=== PATIENT | female | born 1985 | race Two or more races ===

== ENCOUNTER 2025-09-16 18:09 | Inpatient (IN) | payer MEDICAID, OTHER ==
[~2025-09-16] VITALS: Ht 170.2 cm; Wt 94.2 kg
[2025-09-16 20:05] LABS: Hematocrit 44.9 % (36.0-46.0); Hemoglobin 15.4 g/dL (12.2-16.2); Mean Corpuscular Hemoglobin 30.2 pg (28.0-32.0); Mean Corpuscular Volume 88.5 fL (80.0-100.0); Nucleated Red Blood Cells % 0.3 %
[2025-09-16 20:08] LABS: Chloride 102 mmol/L (98-107); Sodium 141 mmol/L (136-145)
[2025-09-16 20:09] LABS: Anion Gap 11 (5-15); Carbon Dioxide 28 mmol/L (20-31)
[2025-09-16 20:10] LABS: Calcium 9.6 mg/dL (8.7-10.4)
[2025-09-16 20:14] LABS: Glucose 84 mg/dL (74-106)
[2025-09-16 20:15] LABS: BUN/Creatinine Ratio 15.1 (10.0-20.0); Blood Urea Nitrogen 14 mg/dL (9-23)
[2025-09-16 20:17] LABS: Potassium 3.4 mmol/L (3.5-5.1)
--- NOTE | 2025-09-16 20:38 | DVH ---
EXAM: CT HEAD WITHOUT CONTRAST INDICATION: right sided leg weakness x 4 hours TECHNIQUE: CT of the head without intravenous contrast. Radiation Dose : 1. Head: CT Dose: CTDI volume is for 59.39 mGy. Dose-length product is 1070.70 mGy*cm The dose indicators for CT are the volume Computed Tomography (CT) Dose Index (CTDIvol) and the Dose Length Product (DLP), and are measured in units of mGy and mGy-cm, respectively. These indicators are not patient dose, but values generated from the CT scanner acquisition factors. The report includes radiation exposure data for exposures received during this examination. COMPARISON: None FINDINGS: Motion artifact degrades fine detail. The cerebral parenchyma appears to be normal configuration and attenuation. The ventricles, cisterns , and sulci appear age-appropriate. There is no evidence for acute territorial infarct, hemorrhage, or mass effect. The orbits are normal. The visualized paranasal sinuses and mastoid air cells are clear. The soft t issues and osseous structures appear within normal limits. IMPRESSION: 1. No acute territorial infarct, intracranial hemorrhage, or mass effect. 2. If clinical symptoms persist, MRI is suggested in further evaluation. Radiation optimization: All CT scans at this facility use at least one of these dose optimization liliane hniques: automated exposure control mA and/or kV adjustment per patient size (includes targeted exam s where dose is matched to clinical indication) or iterative reconstruction.
--- NOTE | 2025-09-16 21:55 | ED.PDOC ---
History of Present Illness HPI Comments 40-year-old female with past medical history of hypertension presenting for evaluation of sudden onset of right lower extremity numbness, weakness which occurred at around 3:00 p.m. today. Patient states that she works overnight and was sleeping, when she woke up and she went to stand up she felt as if her right leg was completely weak. She reports that she almost fell due to the weakness. She did not initially seek any medical attention when it first occurred. She states that the function started to come back, however, now feels as if it is numb, tingling along the right lower extremity from the knee down to the lateral toes. Reporting some difficulty walking due to this. Patient denies any associated slurred speech, facial weakness, numbness. Reporting some paresthesias along the right hand as well, however, not having any weakness of the arm. This has never occurred to her before. No prior strokes. No prior back injuries. Denies any back pain at this time. Denies significant pain with this. No bowel or bladder incontinence. 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 Hx Social History Smoker: Non-Smoker Alcohol: Denies ETOH Use Drugs: Denies Drug Use Lives In: Home Constitutional: denies: chills, diaphoresis, fatigue, fever, malaise, sweats, weakness, others EENTM: denies: blurred vision, double vision, ear bleeding, ear discharge, ear drainage, ear pain, ear ringing, eye pain, eye redness, hearing loss, mouth pain, mouth swelling, nasal discharge, nose bleeding, nose congestion, nose pain, photophobia, tearing, throat pain, throat swelling, voice changes, others Respiratory: denies: cough, hemoptysis, orthopnea, SOB at rest, shortness of breath, SOB with excertion, stridor, wheezing, others Cardiovascular: denies: chest pain, dizzy spells, diaphoresis, Dyspnea on exertion, edema, irregular heart beat, left arm pain, lightheadedness, palpitations, PND, syncope, others Gastrointestinal: denies: abdomen distended, abdominal pain, blood streaked bowels, constipated, diarrhea, dysphagia, difficulty swallowing, hematemesis, melena, nausea, poor appetite, poor fluid intake, rectal bleeding, rectal pain, vomiting, others Genitourinary: denies: abnormal vagina bleeding, burning, dyspareunia, dysuria, flank pain, frequency, hematuria, incontinence, pain, , vagina discharge, urgency, others Neurological: reports: right sided weakness, tingling Musculoskeletal: denies: back pain, gout, joint pain, joint swelling, muscle pain, muscle stiffness, neck pain, others Integumetry: denies: bruises, change in color, change in hair/nails, dryness, laceration, lesions, lumps, rash, wounds, others Allergic/Immunocompromised: denies: Difficulty Healing, Frequent Infections, Hives, Itching, others Hematologic/Lymphatic: denies: anemia, blood clots, easy bleeding, easy bruising, swollen glands, others Endocrine: denies: excessive hunger, excessive sweating, excessive thirst, excessive urination, flushing, intolerance to cold, intolerance to heat, unexplained weight gain, unexplained weight loss, others Psychiatric: denies: anxiety, bipolar disorder, depression, hopeless, panic disorder, schizophrenia, sleepless, suicidal, others All Other Systems: Reviewed and Negative Physical Exam General Appearance: Normal HEENT: Normal ENT Inspection Neck: Non-Tender, Normal Inspection Respiratory: No Accessory Muscle Use, No Respiratory Distress, Normal Breath So unds Cardiovascular: No Edema, No JVD Breast Exam: Deferred Gastrointestinal: Non Tender, Soft Genitalia: Deferred Pelvic: Deferred Rectal: Deferred Extremities: Other (RUE: 5/5 strength t/o shoulder, elbow, wrist, 5/5 finger tree thinner; subjective diminished sensation along right hand; RLE: 4+/5 Hip and knee F/E, 4/5 great toe dorsiflexion; ambulates with slight limp/dragging foot) Neurologic: Alert, county demonstrator II-XII nml as Tested, Sensory Deficit Cerebellar Function: Normal Reflexes: Normal Skin: Normal Color Lymphatic: No Adenopathy Was a procedure done? Was a procedure done?: No Differential Dx Considerations may include: CVA versus lumbar spinal stenosis versus lumbosacral radiculopathy versus lumbar spinal cord compression X-Ray, Labs, Meds, VS Vital Signs Date Time Temp Pulse Resp B/P (MAP) Pulse Ox O2 Delivery O2 Flow Rate FiO2 10/20/25 18:11 98.2 67 16 154/110 99 98.2 Lab Test 09/16/25 19:49 Range/Units White Blood Count 10.5 4.4-10.8 10^3/uL Red Blood Count 5.08 4.0-5.20 10^6/uL Hemoglobin 15.4 12.2-16.2 g/dL Hematocrit 44.9 36.0-46.0 % Mean Corpuscular Volume 88.5 80.0-100.0 fL Mean Corpuscular Hemoglobin 30.2 28.0-32.0 pg Mean Corpuscular Hemoglobin Concent 34.2 32.0-36.0 g/dL Red Cell Distribution Width 13.6 11.8-14.3 % Platelet Count 304 140-450 10^3/uL Mean Platelet Volume 7.3 6.9-10.8 fL Neutrophils (%) (Auto) 59.6 37.0-80.0 % Lymphocytes (%) (Auto) 28.9 10.0-50.0 % Monocytes (%) (Auto) 8.6 0.0-12.0 % Eosinophils (%) (Auto) 2.2 0.0-7.0 % Basophils (%) (Auto) 0.7 0.0-2.0 % Neutrophils # (Auto) 6.3 1.6-8.6 10 ^3/uL Lymphocytes # (Auto) 3.0 0.4-5.4 10 ^3/uL Monocytes # (Auto) 0.9 0-1.3 10 ^3/uL Eosinophils # (Auto) 0.2 0-0.8 10 ^3/uL Basophils # (Auto) 0.1 0-0.2 10 ^3/uL Nucleated Red Blood Cells 0.3 % Erythrocyte Sedimentation Rate Pending Sodium Level 141 136-145 mmol/L Potassium Level 3.4 L 3.5-5.1 mmol/L Chloride Level 102 98-107 mmol/L Carbon Dioxide Level 28 20-31 mmol/L Anion Gap 11 5-15 Blood Urea Nitrogen 14 9-23 mg/dL Creatinine 0.93 0.550-1.02 mg/dL Glomerular Filtration Rate Calc 79 >90 mL/min BUN/Creatinine Ratio 15.1 10.0-20.0 Serum Glucose 84 74-106 mg/dL Calcium Level 9.6 8.7-10.4 mg/dL Magnesium Level Pending Total Bilirubin Pending Direct Bilirubin Pending Aspartate Amino Transferase (AST) Pending Alanine Aminotransferase (ALT) Pending Alkaline Phosphatase Pending C-Reactive Protein High Sensitivity Pending Total Protein Pending Albumin Pending Anti-Nuclear Antibody Screen Pending Time of 1ST Reevaluation: 21:50 (Patient remains pain-free, however, still reporting subjective numbness, weakness of the leg.) Reevaluation 1ST: Unchanged Patient Education/Counseling: Diagnosis, Treatment Family Education/Counseling: No Family Present SEPSIS Sepsis Screen Date sepsis recognized/suspect: Sep 16, 2025 Time Sepsis recognized/suspect: 1810 Recent Procedure: No On Antibiotic Therapy: No Respiratory Rate >20: No Heart Rate >90: No Temp<36 C (96.8 F) or >38.3 C: No SBP <90 or MAP <65 mmHG: No New Acute Mental Status Change: No Is the patient on CPAP, BIPAP,: No Physician Orders Test, Urine (09/16/25 19:37) Head Without Contrast (09/16/25 19:37) Vital Signs Date Time Temp Pulse Resp B/P (MAP) Pulse Ox O2 Delivery O2 Flow Rate FiO2 09/16/25 18:11 98.2 67 16 154/110 99 98.2 Laboratory Tests Test 09/16/25 19:49 White Blood Count 10.5 10^3/uL (4.4-10.8) Departure 1 Departure Time of Disposition: 21:53 (40-year-old female with past medical history of hypertension who is today presenting for right lower extremity weakness, numbness that started a few hours ago. Patient also reporting right-sided hand paresthesias. Denies any facial involvement, slurred speech, consider possible CVA. CT of the head was performed which shows no evidence of any acute intracranial pathology. Patient is walking somewhat with a limp and does have limited dorsiflexion of the great toe and knee and hip flexion and extension. Has some subjective decreased sensation along the right leg. Given these findings could be concerning for possible lumbar spinal cord compression, radiculopathy. Given that patient is normally ambulatory and is here ambulating with a limp patient would benefit from MRI to further evaluate the cause of her symptoms.) Impression: Primary Impression: Right leg weakness Additional Impressions: Numbness of right lower extremity Right hand paresthesia Disposition: ADMITTED INPATIENT Admit to: Med Surg Condition: Stable Critical Care Note Critical Care Time?: No Stability Stability form required: YRN Moncada MD Sep 16, 2025 21:55
[2025-09-16] MEDS ORDERED: ACETAMINOPHEN 325 MG TAB PO PRN (22:45)
[2025-09-16] MEDS ORDERED: ONDANSETRON HCL 4 MG/2 ML VIAL IV PRN (22:45)
--- NOTE | 2025-09-16 23:19 | DVH ---
Right lower extremity venous duplex Clinical History: right leg sensory loss, rule out mass, cyst Comparison: None Technique: Duplex Doppler evaluation of the deep venous system of the right lower extremity from the common femo ral vein to the popliteal vein including color Doppler and spectral/pulsed waveform analysis was perf ormed. Findings: The common femoral vein demonstrates appropriate compressibility and waveform variability. There is compressibility/patency of the great saphenous vein at the proximal thigh. The femoral vein demonstrates appropriate compressibility and waveform variability. The deep femoral vein demonstrates appropriate compressibility and waveform variability. The popliteal vein demonstrates appropriate compressibility and waveform variability. There is normal compressibility at the tibioperoneal trunk. Impression: 1. No right femoropopliteal venous thrombosis. 2. Contralateral common femoral vein is patent.
[2025-09-16 23:38] LABS: Alanine Aminotransferase 23.0 U/L (7-40); Alkaline Phosphatase 89.0 U/L (46-116); Bilirubin, Direct 0.2 mg/dL (<0.3); Magnesium 2.1 mg/dL (1.6-2.6)
[2025-09-16 23:39] LABS: Bilirubin, Total 0.6 mg/dL (0.2-1.0)
[2025-09-16 23:45] LABS: Albumin 4.8 g/dL (3.2-4.8); Total Protein 8.2 g/dL (5.7-8.2)
--- NOTE | 2025-09-16 23:48 | DVH ---
EXAM: CT LS SPINE WO CONTRAST INDICATION: rule out lumbar radiculopathy TECHNIQUE: Axial images of the lumbar spine have been obtained along with coronal and sagittal reform atted images. CT scans at this facility use dose modulation, iterative reconstruction, and/or weight based dosing when appropriate to reduce radiation dose to as low as reasonably achievable. COMPARISON: None Dose: CTDIvol: 35.75 mGy, DLP: 1187.45 mGy.cm FINDINGS: There is no acute displaced fracture. There is grade 1 anterolisthesis of L5 on S1 on the basis of b ilateral pars defects. There is loss of intervertebral disc height most pronounced at L5-S1. The soft tissues are unremarkable. LEVEL BY LEVEL DISCUSSION BELOW: T12-L1: Unremarkable. L1-L2: Unremarkable. L2-L3: A disc protrusion effaces the thecal sac. There is facet arthropathy. L3-L4: A disc protrusion effaces the thecal sac. There is facet arthropathy. L4-L5: There is facet arthropathy contributing to mild left neural foraminal stenosis. L5-S1: There is grade 1 anterolisthesis of L5 on S1 associated with unroofing of the disc. There is f acet arthropathy. There is severe bilateral neural foraminal stenosis. IMPRESSION: 1. No acute displaced fracture. 2. Degenerative changes of the lumbar spine as detailed with bilateral neural foraminal stenosis at L 5-S1. This may be further evaluated with MRI as clinically indicated.
[2025-09-17] MEDS: POTASSIUM CHL 20 Meq TABLET PO ONE (00:21)
[2025-09-17] MEDS: ENOXAPARIN SOD 40 MG/0.4 ML SYRINGE SC SCH (00:22)
--- NOTE | 2025-09-17 00:53 | DVHHPRES ---
History of Present Illness Resident Creating Document: SY KAPLAN RESIDENT History of Present Illness This is a 40-year-old female with a past medical history of hypertension and anxiety disorder, who came to the emergency room today because of numbness and tingling sensation in her right leg. Patient reports that she was feeling alright in the morning but after a nap in the afternoon, she woke up felt that her right leg from the calf below was numb and felt heavy and "". Patient reports that she called out to her daughter when she was unable to move her leg and denies any slurring of speech or weakness in any part of the body besides the leg. She reports that in another 2 hours time she felt tingling sensation in her feet and she tried to walk but her leg felt heavy and has since felt the same sensation of heaviness and numbness. She reports that she has been limping because of this. She denies any injury to the back, injury to her legs, any other neurological symptoms similar to this in the past, Nausea, vomiting, stroke or TIA symptoms in the past. On inquiry patient reports that she had a bariatric surgery on Apr 04 2025 and has lost 50lb since then. Patient reports that she still has the tingling sensation in the calf and toe and numbness in the lateral 3 toes. On admission her blood pressure was 154/110 mmHg. Rest of the vitals are normal. Potassium was 3.4. Head CT showed no acute territorial infarct, intracranial hemorrhage, or mass effect. We are admitting her for further evaluation and workup. Past medical history: Hypertension, anxiety Past surgical history: cholecystectomy, bariatric surgery on April 04, 2025 lost 50 lb since then Family history: Reviewed and noncontributory to the management of this case Social history: Patient denies ever smoking, taking any illicit drugs but admits to drinking once a month (Tequila) Home medication: Lisinopril 20, Lexapro since last week Allergies: None PCP: Patient does not remember her PCP because she just switched to a new one Code status: Full code Review of Systems Eyes: No: Pain, Vision change, Conjunctivae inflammation, Eyelid inflammation, Other, Redness ENT: No: Ear pain, Ear discharge, Nose pain, Nose discharge, Nose congestion, Mouth pain, Mouth swelling, Throat pain, Throat swelling, Other Respiratory: No: Cough, Dry, Shortness of breath, SOB with excertion, Wheezing, Hemoptysis, Pleuritic Pain, Sputum, Wheezing, Other Cardiovascular: No: Chest Pain, Palpitations, Orthopnea, Paroxysmal Noc. Dyspnea, Edema, Lt Headedness, Other Gastrointestinal: No: Nausea, Vomiting, Abdominal Pain, Diarrhea, Constipation, Melena, Hematochezia, Other Genitourinary: No Dysuria, No Frequency, No Incontinence, No Hematuria, No Retention, No Other Musculoskeletal: leg pain; No: other, neck pain, shoulder pain, arm pain, back pain, hand pain, foot pain Skin: No: Rash, Lesions, Jaundice, Bruising, Other Neurological: Numbness; No: Weakness, Incoordination, Change in speech, Confusion, Seizures, Other Allergies: Coded Allergies: NO KNOWN ALLERGIES (Unverified , 09/16/25) Medications Current Medications Medications Dose Ordered Sig/Romero Route Start Time Stop Time Status Last Admin Dose Admin Ondansetron HCl 4 mg Q4HP PRN IV 09/16/25 22:45 Acetaminophen 650 mg Q6HP PRN PO 09/16/25 22:45 Enoxaparin Sodium 40 mg Q24H SC 09/16/25 23:30 09/17/25 00:22 40 MG Lisinopril 20 mg DAILY PO 09/17/25 10:00 Citalopram Hydrobromide 10 mg DAILY PO 09/17/25 10:00 Exam Vital Signs Vital Signs Date Time Temp Pulse Resp B/P (MAP) Pulse Ox O2 Delivery O2 Flow Rate FiO2 09/17/25 00:06 74 20 100 Room Air 09/17/25 00:06 98.1 149/100 (116) 98.1 Exam General Appearance: Alert, Oriented X3, Cooperative, Not in acute distress HEENT: Atraumatic, Mucous membranes moist/pink Respiratory: Clear to auscultation, Normal air movement, No added sounds Cardiovascular: Regular rate, Normal S1, Normal S2, No murmurs Abdominal: Active bowel sounds, Soft, no distention, no tenderness Extremities: No edema, Normal pulses, No tenderness/swelling, strength in right leg 2/5, left leg 5/5, tactile sensation on right leg is less compared to right leg Skin: No Significant rash, except past surgical scars, vitiligo seen in face and feet Neuro: Normal speech, sensorimotor deficits none Psych/Mental Status: Mental status NL, Mood NL Labs/Xrays Labs Test 09/16/25 19:49 Range/Units White Blood Count 10.5 4.4-10.8 10^3/uL Red Blood Count 5.08 4.0-5.20 10^6/uL Hemoglobin 15.4 12.2-16.2 g/dL Hematocrit 44.9 36.0-46.0 % Mean Corpuscular Volume 88.5 80.0-100.0 fL Mean Corpuscular Hemoglobin 30.2 28.0-32.0 pg Mean Corpuscular Hemoglobin Concent 34.2 32.0-36.0 g/dL Red Cell Distribution Width 13.6 11.8-14.3 % Platelet Count 304 140-450 10^3/uL Mean Platelet Volume 7.3 6.9-10.8 fL Neutrophils (%) (Auto) 59.6 37.0-80.0 % Lymphocytes (%) (Auto) 28.9 10.0-50.0 % Monocytes (%) (Auto) 8.6 0.0-12.0 % Eosinophils (%) (Auto) 2.2 0.0-7.0 % Basophils (%) (Auto) 0.7 0.0-2.0 % Neutrophils # (Auto) 6.3 1.6-8.6 10 ^3/uL Lymphocytes # (Auto) 3.0 0.4-5.4 10 ^3/uL Monocytes # (Auto) 0.9 0-1.3 10 ^3/uL Eosinophils # (Auto) 0.2 0-0.8 10 ^3/uL Basophils # (Auto) 0.1 0-0.2 10 ^3/uL Nucleated Red Blood Cells 0.3 % Erythrocyte Sedimentation Rate 20 0-20 mm/hr Sodium Level 141 136-145 mmol/L Potassium Level 3.4 L 3.5-5.1 mmol/L Chloride Level 102 98-107 mmol/L Carbon Dioxide Level 28 20-31 mmol/L Anion Gap 11 5-15 Blood Urea Nitrogen 14 9-23 mg/dL Creatinine 0.93 0.550-1.02 mg/dL Glomerular Filtration Rate Calc 79 >90 mL/min BUN/Creatinine Ratio 15.1 10.0-20.0 Serum Glucose 84 74-106 mg/dL Calcium Level 9.6 8.7-10.4 mg/dL Magnesium Level 2.1 1.6-2.6 mg/dL Total Bilirubin 0.6 0.2-1.0 mg/dL Direct Bilirubin 0.2 <0.3 mg/dL Aspartate Amino Transferase (AST) 22 13-40 U/L Alanine Aminotransferase (ALT) 23 7-40 U/L Alkaline Phosphatase 89 46-116 U/L C-Reactive Protein High Sensitivity 0.16 <1.0 mg/dL Total Protein 8.2 5.7-8.2 g/dL Albumin 4.8 3.2-4.8 g/dL SEPSIS Sepsis Screen Date sepsis recognized/suspect: Sep 17, 2025 Time Sepsis recognized/suspect: 000 Recent Procedure: No On Antibiotic Therapy: No Respiratory Rate >20: No Heart Rate >90: No Temp<36 C (96.8 F) or >38.3 C: No SBP <90 or MAP <65 mmHG: No New Acute Mental Status Change: No Is the patient on CPAP, BIPAP,: No Physician Orders Test, Urine (09/16/25 19:37) Head Without Contrast (09/16/25 19:37) Admit (09/16/25 22:38) Code Status (09/16/25 22:38) Ondansetron Hcl (Zofran) (09/16/25 22:45) Complete Blood Count (09/17/25 04:00) Comprehensive Metabolic Panel (09/17/25 04:00) Cardiac Diet-2gna,Lofat,Lochol (09/17/25 Breakfast) Condition: Fair (09/16/25 22:38) Acetaminophen Tablet (Tylenol Tablet) (09/16/25 22:45) Enoxaparin Sodium (Lovenox) (09/16/25 23:30) Stat Ekg For Chest Pain (09/16/25 22:38) Lisinopril Tablet (Zestril Tablet) (09/17/25 10:00) Ls Spine Wo Contrast (09/16/25 22:38) [place] Direct W/Reflex To Comp. (09/16/25 22:38) Rt Lower Dvt (09/16/25 22:38) Hemoglobin A1c (09/17/25 00:07) Vitamin B12 (09/17/25 00:07) Folate (Folic Acid) (09/17/25 00:07) Citalopram Tablet (Celexa Tablet) (09/17/25 10:00) Drug Screen (09/17/25 00:50) Vital Signs Date Time Temp Pulse Resp B/P (MAP) Pulse Ox O2 Delivery O2 Flow Rate FiO2 09/17/25 00:06 74 20 100 Room Air 09/17/25 00:06 98.1 74 12 149/100 (116) 100 98.1 09/16/25 18:11 98.2 67 16 154/110 99 98.2 Laboratory Tests Test 09/16/25 19:49 White Blood Count 10.5 10^3/uL (4.4-10.8) Medications Medications Dose Ordered Sig/Romero Route Start Time Stop Time Status Last Admin Dose Admin Enoxaparin Sodium 40 mg Q24H SC 09/16/25 23:30 09/17/25 00:22 40 MG Potassium Chloride 20 meq ONCE ONCE PO 09/16/25 22:45 09/16/25 23:14 DC 09/17/25 00:21 20 MEQ Assessment/Plan Assessment/Plan #lumbar radiculopathy #mononeuropathy of right lower leg #rule out compressive mass/cyst #rule out autoimmune conditions #rule out dvt -rt lower leg doppler shows No right femoropopliteal venous thrombosis. -LS spine CT without contrast shows: No acute displaced fracture; Degenerative changes of the lumbar spine as detailed with bilateral neural foraminal stenosis at L5-S1. This may be further evaluated with MRI as clinically indicated. -folate/b12 -[place] -ESR 20,CRP 0.16 -Zofran 4mg iv q4 prn -acetaminophen 650mg p.o q6 prn -UDS #hypertension -continue home med lisinopril 20mg #anxiety disorder -continue home medication citalopram 10mg po #vitiligo -outpatient follow-up with dermatology #hypokalemia -replenished DVT prophylaxis: Lovenox 40 mg subcutaneous daily Diet: cardiac diet Goals of care discussed with the patient for more than 27 minutes: Full code status Case discussed with Dr. Barajas, patient Plan discussed with: Patient My Orders Orders - SY KAPLAN RESIDENT Procedure Category Date Status Time Admit ADMIT 09/16/25 Transmitted 22:38 Code Status CODE 09/16/25 Transmitted 22:38 Ondansetron Hcl PHA 09/16/25 In Process (Zofran) 22:45 Complete Blood Count LAB 09/17/25 Logged 04:00 Comprehensive LAB 09/17/25 Logged Metabolic Panel 04:00 Cardiac DIET 09/17/25 Transmitted Diet-2gna,Lofat,Lochol Breakfast Condition: Fair PAULO 09/16/25 In Process 22:38 Acetaminophen Tablet PHA 09/16/25 In Process (Tylenol Tablet) 22:45 Enoxaparin Sodium PHA 09/16/25 In Process (Lovenox) 23:30 Stat Ekg For Chest PAULO 09/16/25 In Process Pain 22:38 Lisinopril Tablet PHA 09/17/25 In Process (Zestril Tablet) 10:00 Ls Spine Wo Contrast CT 09/16/25 Resulted 22:38 [place] Direct W/Reflex LAB 09/16/25 In Process To Comp. 22:38 Rt Lower Dvt US 09/16/25 Resulted 22:38 Hemoglobin A1c LAB 09/17/25 Logged 00:07 Vitamin B12 LAB 09/17/25 Logged 00:07 Folate (Folic Acid) LAB 09/17/25 Logged 00:07 Citalopram Tablet PHA 09/17/25 In Process (Celexa Tablet) 10:00 Drug Screen LAB 09/17/25 Transmitted 00:50 Date of Service: Sep 16, 2025 Billing Provider: KENDALL BARAJAS MD Common Visit Codes: [id number] INP/OBS CARE (HIGH) SY KAPLAN RESIDENT Sep 17, 2025 00:53 KENDALL BARAJAS MD Sep 17, 2025 11:52
[2025-09-17 04:29] LABS: Hematocrit 42.1 % (36.0-46.0); Hemoglobin 14.5 g/dL (12.2-16.2); Mean Corpuscular Hemoglobin 30.2 pg (28.0-32.0); Mean Corpuscular Volume 87.9 fL (80.0-100.0); Nucleated Red Blood Cells % 0.1 %
[2025-09-17 04:41] VITALS: BP 126/81; PULSE 60; RESP 16; TEMP 97.7; O2SAT 98
[2025-09-17 04:53] LABS: Alanine Aminotransferase 19 U/L (7-40); Albumin 4.4 g/dL (3.2-4.8); Alkaline Phosphatase 78 U/L (46-116); Anion Gap 11 (5-15); BUN/Creatinine Ratio 15.6 (10.0-20.0); Bilirubin, Total 0.8 mg/dL (0.2-1.0); Blood Urea Nitrogen 14 mg/dL (9-23); Calcium 9.7 mg/dL (8.7-10.4); Carbon Dioxide 28 mmol/L (20-31); Chloride 102 mmol/L (98-107); Glucose 89 mg/dL (74-106); Potassium 3.7 mmol/L (3.5-5.1); Sodium 141 mmol/L (136-145); Total Protein 7.6 g/dL (5.7-8.2)
[2025-09-17] MEDS ORDERED: LISI-285 PO (06:20)
[2025-09-17] MEDS ORDERED: ESCI5TAB PO (06:20)
[2025-09-17 08:09] VITALS: BP 122/81; PULSE 71; RESP 16; TEMP 97.8; O2SAT 98
[2025-09-17] MEDS: CITALOPRAM HYDROBR 20 MG TAB PO SCH (08:54)
[2025-09-17] MEDS: LISINOPRIL 20 MG TAB PO SCH (08:54)
--- NOTE | 2025-09-17 10:15 | DVHPNRES ---
Progress Note Date Seen: Sep 17, 2025 Resident Creating Document: TASHIA CLARK RESIDENT Medical Necessity Reason Pt with a Central, PICC or Fol: No Subjective Review of Systems Brief history on admission: This is a 40-year-old female with a past medical history of vitiligo, hypertension and anxiety disorder, presented to the ER for chief complain of numbness and tingling sensation in her right leg. Patient started complaining of right leg weakness, numbness, tingling since yesterday. Patient reports that she called out to her daughter when she was unable to move her leg and denies any slurring of speech or weakness in any part of the body besides the leg. She reports that in another 2 hours time she felt tingling sensation in her feet and she tried to walk but her leg felt heavy and has since felt the same sensation of heaviness and numbness. She reports that she has been limping because of this. She denies any injury to the back, injury to her legs, any other neurological symptoms similar to this in the past, Nausea, vomiting, stroke or TIA symptoms in the past. On inquiry patient reports that she had a bariatric surgery on Apr 04 2025 and has lost 50lb since then. Patient reports that she still has the tingling sensation in the calf and toe and numbness in the lateral 3 toes. On admission her blood pressure was 154/110 mmHg. Rest of the vitals are normal. Potassium was 3.4. Head CT showed no acute territorial infarct, intracranial hemorrhage, or mass effect. We are admitting her for further evaluation and workup. Past medical history: Hypertension, anxiety, vitiligo Past surgical history: cholecystectomy, bariatric surgery on April 04, 2025 lost 50 lb since then Family history: Reviewed and noncontributory to the management of this case Social history: Patient denies ever smoking, taking any illicit drugs but admits to drinking once a month (Tequila) Home medication: Lisinopril 20, Lexapro since last week Allergies: None PCP: Patient does not remember her PCP because she just switched to a new one Code status: Full code ROS: Constitutional: Denies weight loss, fever and chills. HEENT: Denies changes in vision and hearing. Respiratory: Denies shortness of breath and cough Cardiovascular: Denies chest discomfort or palpitations GI: Denies abdominal pain, nausea, vomiting and diarrhea. : Denies dysuria and urinary frequency. Musculoskeletal: Denies myalgias and joint pain Skin: Denies rash and pruritus. Neurological: Right leg weakness, numbness, tingling 09/17/2025: Patient was seen at bedside today. Patient continues to complain of right leg weakness [id number]. Objective vital signs Vital Sign Date Time Temp Pulse Resp B/P (MAP) Pulse Ox O2 Delivery O2 Flow Rate FiO2 09/17/25 08:54 131/74 09/17/25 08:09 97.8 71 16 98 97.8 09/17/25 00:06 Room Air medications Current Medications Medications Dose Ordered Sig/Romero Route Start Time Stop Time Status Last Admin Dose Admin Ondansetron HCl 4 mg Q4HP PRN IV 09/16/25 22:45 Acetaminophen 650 mg Q6HP PRN PO 09/16/25 22:45 Enoxaparin Sodium 40 mg Q24H SC 09/16/25 23:30 09/17/25 00:22 40 MG Lisinopril 20 mg DAILY PO 09/17/25 10:00 09/17/25 08:54 20 MG Citalopram Hydrobromide 10 mg DAILY PO 09/17/25 10:00 Examination General: Diffuse hyperpigmentation seen in hands, legs, face. Patient alert and oriented in person, place and time. Patient following commands. HEENT: Normocephalic, atraumatic, moist mucous membranes Respiratory/pulmonary: Clear lungs bilaterally, vesicular murmurs present in almost all lung rainey, no associated crackles or wheezes. Cardiovascular: Normal heart sounds S1 and S2 with no associated murmurs Abdomen: Abdomen nondistended, there is no pain to palpation in any of the abdominal quadrants, no palpable masses. Extremities: There is no peripheral edema present at the lower extremities. Peripheral Pulses: 3+ Radial (R). 3+ Radial (L). 3+ Dorsalis pedis (R). 3+ Dorsalis pedis(L) Skin: No rashes or pruritus, there is no sacral edema present at this time. Neurological: Reduced motor strength 2/5 in right lower extremity, 2/5 sensory strength in right lower extremity. Normal motor and sensory strength in left lower extremity. No meningeal signs. Intact cranial nerves. laboratory and microbiology Laboratory Tests 09/17/25 03:43 Test 10/21/25 03:43 Range/Units Serum Glucose 89 74-106 mg/dL Problem List/Assessment/Plan Problem List/Assessment/Plan Lumbar radiculopathy Mononeuropathy of right lower leg Rule out compressive mass/cyst Rule out autoimmune conditions Severe Lumbar spinal stenosis Perineural sleeve cyst Degenerative disc disease Zofran 4mg iv q4 prn Acetaminophen 650mg p.o q6 prn MAC ordered MRI spine shows moderate lumbar degenerative disc, severe bilateral neural foraminal stenosis at L5-S1, 7 mm perineural sleeve cyst at S2 Spinal surgery consulted TIA, ruled out Stroke, ruled out Echocardiogram ordered Head CT, MRI shows no hemorrhagic or ischemic infarct Hypertension Continue home med lisinopril 20mg Anxiety disorder Continue home medication citalopram 10mg po Vitiligo Outpatient follow-up with dermatology Hypokalemia Replenished DVT ruled out Lower extremity Doppler negative for DVT DIET: Cardiac DVT PROPHYLAXIS: Lovenox GI PROPHYLAXIS: Protonix CODE STATUS: Goals of care discussed with patient at bedside for more than 17 minutes. Full code DISPOSITION: Med/surge This medical document was created using an electronic medical record system with [employer] direct computerized dictation system. Although this document has been carefully reviewed, there may still be some phonetic and typographical errors. These areas are purely typographical due to imperfections of the software programs, and do not reflect any compromise in the patient's medical care. Patient's status and plan discussed with the patient. Case discussed with Dr. Sheth Plan discussed with: Patient, Other (Nurses) My Orders My Orders Orders - TASHIA CLARK Procedure Category Date Status Time Echo 2d Mode Cardiac US 09/17/25 Logged DOP 10:05 Brain Head Wo Contrast MRI 09/17/25 Logged 10:05 * Neurology Consult CONS 09/17/25 Transmitted 10:05 Basic Metabolic Panel LAB 09/18/25 Verified 04:00 Complete Blood Count LAB 09/18/25 Verified 04:00 Aspirin Tablet PHA 09/17/25 Transmitted 10:15 Aspirin Tablet PHA 09/18/25 Transmitted 10:00 Atorvastatin (Lipitor) PHA 09/17/25 Transmitted 22:00 Date of Service: Sep 17, 2025 Billing Provider: ROGER SHETH MD Common Visit Codes: [id number] INP/OBS CARE(HIGH) TASHIA CLARK RESIDENT Sep 17, 2025 10:15
--- NOTE | 2025-09-17 11:40 | DVH ---
MRI BRAIN HEAD WO CONTRAST INDICATION: TIA EXAM DATE: 09/17/2025 10:48 AM COMPARISON: CT HEAD WITHOUT CONTRAST on DOS: 09/16/25 PROCEDURE: Using a 1.5 Jessica scanner, multisequence multiplanar imaging of the brain was obtained. FINDINGS: The brainshows normal morphology and signal characteristics. No abnormal T2 hyperintensity, diffusion restriction, or susceptibility hypointensity is present. The ventricles are normal in size . The midline structures are intact. The major intracranial flow voids are present. The aerated space s are normal. The orbital contents and extracranial soft tissues appear normal. IMPRESSION: Unremarkable MRI findings of the brain.
[2025-09-17 12:31] VITALS: BP 127/88; PULSE 59; RESP 16; TEMP 98.4; O2SAT 98
--- NOTE | 2025-09-17 14:01 | DVH ---
PROCEDURE: MRI LUMBAR SPINE WO CONTRAST Indication: radiculopathy COMPARISON: None TECHNIQUE: Multiplanar multisequence images of the the lumbar spine are obtained. FINDINGS: For the purpose of this examination, there are 5 lumbar vertebral body types counting from the lumbos acral junction. The lumbar vertebral body heights are maintained. Moderate multilevel disc space narrowing and desicc ation. 3 mm anterolisthesis L5 on S1. Probable L5 pars defects. Conus terminates at the level of the T12 vertebral body level. T12-L1: No spinal canal, neural foraminal stenosis. L1-2: No spinal canal, neural foraminal stenosis. Mild facet and flavum hypertrophy. L2-3: 3 mm disc protrusion. [id number] facet and flavum hypertrophy. No spinal canal stenosis. Mild left neural foraminal stenosis. L3-4: 3 mm disc protrusion. [id number]-[id number] facet and flavum hypertrophy. No spinal canal stenosis. Mild bilateral neural foraminal stenosis. L4-5: 3 mm disc protrusion. Moderate facet and flavum hypertrophy . No spinal canal stenosis. Mild b ilateral neural foraminal stenosis. L5-S1: 3 mm anterolisthesis L5 on S1. No spinal canal stenosis. Severe bilateral neural foraminal st enosis. 7 mm perineural sleeve cysts at S2, incompletely characterized. IMPRESSION: Moderate lumbar degenerative disc disease. L5 pars defects resulting in 3 mm anterolisthesis L5 on S1. Severe bilateral neural foraminal stenos is L5-S1. Mild neural foraminal stenosis at the remaining levels as described. No high-grade spinal canal stenosis. 7 mm perineural sleeve cysts at S2
[2025-09-17] MEDS: PANTOPRAZOLE 40 MG TAB PO ONE (15:15)
[2025-09-17 17:00] VITALS: BP 120/77; PULSE 62; RESP 16; TEMP 98.6; O2SAT 98
--- NOTE | 2025-09-17 17:49 | DVHSR ---
APPROVED REPORT EXAM: Two-dimensional and M-mode echocardiogram with Doppler and color Doppler. Blood Pressure: 131/74 mmHg INDICATION TIA RISK FACTORS Obesity: Height: 5'7", Weight: 207 DIMENSIONS LVDd4.5 (3.8-5.7cm)LA (2D)4.2 (1.9-4.0cm)Aortic Root3.2 (2.0-3.7cm) LVDs3.0 (2.5-4.0cm)LA (MM) (1.9-4.0cm)Aortic Cusp Exc1.8 (1.5-2.0cm) EF (%) 60.0 (55-70%)Rt. Atrium4.1 (1.9-4.0cm)Asc. Aorta cm IVSd1.2 (0.7-1.1cm)RV (D) (1.8-2.4cm) PWd1.0 (0.7-1.1cm) Mitral Valve MitralMitral Stenosis E wave0.69m/sMV Mean GR.mmHg A wave0.71m/sMV Peak GR.mmHg E/A ratio1.02D MVAcm2 DECEL [id number] 1/2 Timems Aortic Valve Aortic ValveAortic Stenosis V11.03m/Yana Mean GR.5mmHg V21.53m/Yana Peak GR.9mmHg LVOT Diameter2.0 (1.8-2.4cm)Doppler AVA2.11cm2 Pulmonic Valve V21.19m/s Tricuspid Valve TR Velocity2.20m/s [id number] Conclusion lvef 65% normal rv function no severe valve abnormalities noted atrial septal aneurysm noted
[2025-09-17] MEDS ORDERED: ATORVASTATIN 20 MG TAB PO SCH (22:00)
[2025-09-18] MEDS ORDERED: PANTOPRAZOLE 40 MG TAB PO SCH (06:00)
--- NOTE | 2025-09-18 07:58 | DVHINCON2 ---
Consultation - Surgical Date Seen: Sep 18, 2025 Referring Physician Referring Physician Attending Doctor: Tashia Muñoz Resident Resident Creating Document: SY KAPLAN RESIDENT Reason for Consultation numbness and tingling sensation in her right leg History of Present Illness History of Present Illness History of Present Illness This is a 40-year-old female with a past medical history of hypertension and anxiety disorder, who came to the emergency room today because of numbness and tingling sensation in her right leg. Patient reports that she was feeling a lright in the morning but after a nap in the afternoon, she woke up felt that her right leg from the calf below was numb and felt heavy and "". Patient reports that she called out to her daughter when she was unable to move her leg and denies any slurring of speech or weakness in any part of the body besides the leg. She reports that in another 2 hours time she felt tingling sensation in her feet and she tried to walk but her leg felt heavy and has since felt the same sensation of heaviness and numbness. She reports that she has been limping because of this. She denies any injury to the back, injury to her legs, any other neurological symptoms similar to this in the past, Nausea, vomiting, stroke or TIA symptoms in the past. On inquiry patient reports that she had a bariatric surgery on Apr 04 2025 and has lost 50lb since then. Patient reports that she still has the tingling sensation in the calf and toe and numbness in the lateral 3 toes. On admission her blood pressure was 154/110 mmHg. Rest of the vitals are normal. Potassium was 3.4. Head CT showed no acute territorial infarct, intracranial hemorrhage, or mass effect. We are admitting her for further evaluation and workup. Past Medical/Surgical History Past Medical/Surgical History Past medical history: Hypertension, anxiety Past surgical history: cholecystectomy, bariatric surgery on April 04, 2025 lost 50 lb since then Family and Social History Family and Social History Family history: Reviewed and noncontributory to the management of this case Social history: Patient denies ever smoking, taking any illicit drugs but admits to drinking once a month (Tequila) Allergies and medications Allergies: Coded Allergies: NO KNOWN ALLERGIES (Unverified , 09/16/25) Home Meds Reported Medications Lisinopril & Hydrochlorothiazi (Lisinopril/Hydrochlorothi) 1 Tab Tab, 1 TAB PO DAILY, #30 TAB 5 Refills 09/17/25 Escitalopram Oxalate (Lexapro) 5 Mg Tab, 1 TAB PO DAILY, #30 TAB 2 Refills 09/17/25 Review of systems Review of Systems: NEURO:Abnormal (numbness and tingling sensation in her right leg) Examination Vital signs Imaging: ORDERING PHYSICIAN: TASHIA MUÑOZ RESIDENT PROCEDURE(s): MSL - LUMBAR SPINE WO CONTRAST REASON: radiculopathy ORDER NUMBER(s): [id number], ACCESSION NUMBER(s): [id number] PROCEDURE: MRI LUMBAR SPINE WO CONTRAST Indication: radiculopathy COMPARISON: None TECHNIQUE: Multiplanar multisequence images of the the lumbar spine are obtained. FINDINGS: For the purpose of this examination, there are 5 lumbar vertebral body types counting from the lumbosacral junction. The lumbar vertebral body heights are maintained. Moderate multilevel disc space narrowing and desiccation. 3 mm anterolisthesis L5 on S1. Probable L5 pars defects. Conus terminates at the level of the T12 vertebral body level. T12-L1: No spinal canal, neural foraminal stenosis. L1-2: No spinal canal, neural foraminal stenosis. Mild facet and flavum hypertrophy. L2-3: 3 mm disc protrusion. [id number] facet and flavum hypertrophy. No spinal canal stenosis. Mild left neural foraminal stenosis. L3-4: 3 mm disc protrusion. Rqln-kk-[id number] facet and flavum hypertrophy. No s destini canal stenosis. Mild bilateral neural foraminal stenosis. L4-5: 3 mm disc protrusion. Moderate facet and flavum hypertrophy . No spinal canal stenosis. Mild bilateral neural foraminal stenosis. L5-S1: 3 mm anterolisthesis L5 on S1. No spinal canal stenosis. Severe bilateral neural foraminal stenosis. 7 mm perineural sleeve cysts at S2, incompletely characterized. IMPRESSION: Moderate lumbar degenerative disc disease. L5 pars defects resulting in 3 mm anterolisthesis L5 on S1. Severe bilateral neural foraminal stenosis L5-S1. Mild neural foraminal stenosis at the remaining levels as described. No high-grade spinal canal stenosis. 7 mm perineural sleeve cysts at S2 RING PHYSICIAN: SY KAPLAN RESIDENT PROCEDURE(s): LS2CT - LS SPINE WO CONTRAST REASON: rule out lumbar radiculopathy ORDER NUMBER(s): [id number], ACCESSION NUMBER(s): [id number] EXAM: CT LS SPINE WO CONTRAST INDICATION: rule out lumbar radiculopathy TECHNIQUE: Axial images of the lumbar spine have been obtained along with joe nal and sagittal reformatted images. CT scans at this facility use dose modulation, iterative reconstruction, and/or weight based dosing when appropriate to reduce radiation dose to as low as reasonably achievable. COMPARISON: None Dose: CTDIvol: 35.75 mGy, DLP: 1187.45 mGy.cm FINDINGS: There is no acute displaced fracture. There is grade 1 anterolisthesis of L5 on S1 on the basis of bilateral pars defects. There is loss of intervertebral disc height most pronounced at L5-S1. The soft tissues are unremarkable. LEVEL BY LEVEL DISCUSSION BELOW: T12-L1: Unremarkable. L1-L2: Unremarkable. L2-L3: A disc protrusion effaces the thecal sac. There is facet arthropathy. L3-L4: A disc protrusion effaces the thecal sac. There is facet arthropathy. L4-L5: There is facet arthropathy contributing to mild left neural foraminal stenosis. L5-S1: There is grade 1 anterolisthesis of L5 on S1 associated with unroofing of the disc. There is facet arthropathy. There is severe bilateral neural foraminal stenosis. IMPRESSION: 1. No acute displaced fracture. 2. Degenerative changes of the lumbar spine as detailed with bilateral neural foraminal stenosis at L5-S1. This may be further evaluated with MRI as clinically indicated. Vital Signs Date Time Temp Pulse Resp B/P (MAP) Pulse Ox O2 Delivery O2 Flow Rate FiO2 09/17/25 17:00 98.6 62 16 120/77 (91) 98 98.6 09/17/25 15:21 Room Air* 0 21 Medications Current Medications Medications (Trade) Dose Ordered Sig/Romero Route PRN Reason Start Time Stop Time Status Last Admin Lisinopril (Zestril Tablet) 20 mg DAILY PO 09/17/25 10:00 09/17/25 08:54 Citalopram Hydrobromide (CeleXA TABLET) 10 mg DAILY PO 09/17/25 10:00 Aspirin 81 mg DAILY PO 09/18/25 10:00 Atorvastatin Calcium (Lipitor) 20 mg HS PO 09/17/25 22:00 Pantoprazole Sodium (Protonix Tablet) 40 mg DAILY@0600 PO 09/18/25 06:00 Laboratory Labs Test 09/17/25 03:43 09/16/25 19:49 Range/Units White Blood Count 9.6 4.4-10.8 10^3/uL Red Blood Count 4.79 4.0-5.20 10^6/uL Hemoglobin 14.5 12.2-16.2 g/dL Hematocrit 42.1 36.0-46.0 % Mean Corpuscular Volume 87.9 80.0-100.0 fL Mean Corpuscular Hemoglobin 30.2 28.0-32.0 pg Mean Corpuscular Hemoglobin Concent 34.3 32.0-36.0 g/dL Red Cell Distribution Width 13.4 11.8-14.3 % Platelet Count 283 140-450 10^3/uL Mean Platelet Volume 7.4 6.9-10.8 fL Neutrophils (%) (Auto) 53.0 37.0-80.0 % Lymphocytes (%) (Auto) 34.4 10.0-50.0 % Monocytes (%) (Auto) 9.7 0.0-12.0 % Eosinophils (%) (Auto) 2.5 0.0-7.0 % Basophils (%) (Auto) 0.4 0.0-2.0 % Neutrophils # (Auto) 5.1 1.6-8.6 10 ^3/uL Lymphocytes # (Auto) 3.3 0.4-5.4 10 ^3/uL Monocytes # (Auto) 0.9 0-1.3 10 ^3/uL Eosinophils # (Auto) 0.2 0-0.8 10 ^3/uL Basophils # (Auto) 0 0-0.2 10 ^3/uL Nucleated Red Blood Cells 0.1 % Sodium Level 141 136-145 mmol/L Potassium Level 3.7 3.5-5.1 mmol/L Chloride Level 102 98-107 mmol/L Carbon Dioxide Level 28 20-31 mmol/L Anion Gap 11 5-15 Blood Urea Nitrogen 14 9-23 mg/dL Creatinine 0.90 0.550-1.02 mg/dL Glomerular Filtration Rate Calc 82 >90 mL/min BUN/Creatinine Ratio 15.6 10.0-20.0 Serum Glucose 89 74-106 mg/dL Hemoglobin A1c 5.3 <5.7 % A1C Calcium Level 9.7 8.7-10.4 mg/dL Total Bilirubin 0.8 0.2-1.0 mg/dL Aspartate Amino Transferase (AST) 18 13-40 U/L Alanine Aminotransferase (ALT) 19 7-40 U/L Alkaline Phosphatase 78 46-116 U/L Total Protein 7.6 5.7-8.2 g/dL Albumin 4.4 3.2-4.8 g/dL Vitamin B12 Level 464 211-911 pg/mL Vitamin D 25-Hydroxy 31.9 30.0-100 ng/mL Folic Acid 10.95 >5.38 ng/mL Erythrocyte Sedimentation Rate 20 0-20 mm/hr Magnesium Level 2.1 1.6-2.6 mg/dL Direct Bilirubin 0.2 <0.3 mg/dL C-Reactive Protein High Sensitivity 0.16 <1.0 mg/dL Examination: Any Other System: (no assessment done, patient laft ama) Problem List/Assessment/Plan Problems: (1) Pars defect of lumbar spine (2) Right hand paresthesia (3) Right leg weakness (4) Numbness of right lower extremity Assessment and Plan Moderate lumbar degenerative disc disease L5 pars defects resulting in 3 mm anterolisthesis L5 on S1. Severe bilateral neural foraminal stenosis L5-S1 Mild neural foraminal stenosis at the remaining levels as described bilateral neural foraminal stenosis at L5-S1 Arrived to [facility] for consultation, chart is still active in EHR- chart has been reviewed with DR Ferguson and a surgical plan has been made for presentation. Upon arrival it is become apparent that the patient has signed out AMA. Call with thierno Perez [facility] Orth[facility] Spine Surgery nurse practitioner For Dr Ren Ferguson Patient was examined, chart reviewed, labs evaluated, and diagnostic studies and findings analyzed. Case was discussed with Dr. Omari Ferguson who formulated the plan of care. This medical document was created using an electronic medical record system with [employer] system. Although this document has been carefully reviewed, there might still be some phonetic and typographical errors. These areas are purely typographical due to imperfections of the software programs, and do not reflect any compromise in the patient's medical care. Plan discussed with Plan discussed with: Other (patient left ama) Visit Coding Surgery Date of Service if different f: Sep 18, 2025 Billing Provider: JENN PEREZ NP Surgery Visit Codes: 82951 - INP CONSULT <20 MIN JENN PEREZ NP Sep 18, 2025 07:58
[2025-09-18 10:07] LABS: Anti-Nuclear Antibody Direct Negative (Negative)
--- NOTE | 2025-09-18 14:47 | DVHDSRES ---
Discharge Summary Date of Admission Resident Creating Document: TASHIA CLARK RESIDENT Sep 16, 2025 at 22:38 Date of Discharge: Sep 18, 2025 Labs/Diagnostic Data: Laboratory Results Test 09/17/25 03:43 09/16/25 19:49 White Blood Count 9.6 10^3/uL (4.4-10.8) Red Blood Count 4.79 10^6/uL (4.0-5.20) Hemoglobin 14.5 g/dL (12.2-16.2) Hematocrit 42.1 % (36.0-46.0) Mean Corpuscular Volume 87.9 fL (80.0-100.0) Mean Corpuscular Hemoglobin 30.2 pg (28.0-32.0) Mean Corpuscular Hemoglobin Concent 34.3 g/dL (32.0-36.0) Red Cell Distribution Width 13.4 % (11.8-14.3) Platelet Count 283 10^3/uL (140-450) Mean Platelet Volume 7.4 fL (6.9-10.8) Neutrophils (%) (Auto) 53.0 % (37.0-80.0) Lymphocytes (%) (Auto) 34.4 % (10.0-50.0) Monocytes (%) (Auto) 9.7 % (0.0-12.0) Eosinophils (%) (Auto) 2.5 % (0.0-7.0) Basophils (%) (Auto) 0.4 % (0.0-2.0) Neutrophils # (Auto) 5.1 10 ^3/uL (1.6-8.6) Lymphocytes # (Auto) 3.3 10 ^3/uL (0.4-5.4) Monocytes # (Auto) 0.9 10 ^3/uL (0-1.3) Eosinophils # (Auto) 0.2 10 ^3/uL (0-0.8) Basophils # (Auto) 0 10 ^3/uL (0-0.2) Nucleated Red Blood Cells 0.1 % Sodium Level 141 mmol/L (136-145) Potassium Level 3.7 mmol/L (3.5-5.1) Chloride Level 102 mmol/L (98-107) Carbon Dioxide Level 28 mmol/L (20-31) Anion Gap 11 (5-15) Blood Urea Nitrogen 14 mg/dL (9-23) Creatinine 0.90 mg/dL (0.550-1.02) Glomerular Filtration Rate Calc 82 mL/min (>90) BUN/Creatinine Ratio 15.6 (10.0-20.0) Serum Glucose 89 mg/dL (74-106) Hemoglobin A1c 5.3 % A1C (<5.7) Calcium Level 9.7 mg/dL (8.7-10.4) Total Bilirubin 0.8 mg/dL (0.2-1.0) Aspartate Amino Transferase (AST) 18 U/L (13-40) Alanine Aminotransferase (ALT) 19 U/L (7-40) Alkaline Phosphatase 78 U/L (46-116) Total Protein 7.6 g/dL (5.7-8.2) Albumin 4.4 g/dL (3.2-4.8) Vitamin B12 Level 464 pg/mL (211-911) Vitamin D 25-Hydroxy 31.9 ng/mL (30.0-100) Folic Acid 10.95 ng/mL (>5.38) Erythrocyte Sedimentation Rate 20 mm/hr (0-20) Magnesium Level 2.1 mg/dL (1.6-2.6) Direct Bilirubin 0.2 mg/dL (<0.3) C-Reactive Protein High Sensitivity 0.16 mg/dL (<1.0) Anti-Nuclear Antibody Screen Negative (Negative) Other Laboratory Tests 09/17/25 03:43 Brief Hx & Hospital Course: Brief history on admission, hospital course: This is a 40-year-old female with a past medical history of vitiligo, hypertension and anxiety disorder, presented to the ER for chief complain of numbness and tingling sensation in her right leg. Patient started complaining of right leg weakness, numbness, tingling since yesterday. Patient reports that she called out to her daughter when she was unable to move her leg and denies any slurring of speech or weakness in any part of the body besides the leg. She reports that in another 2 hours time she felt tingling sensation in her feet and she tried to walk but her leg felt heavy and has since felt the same sensation of heaviness and numbness. She reports that she has been limping because of this. She denies any injury to the back, injury to her legs, any other neurological symptoms similar to this in the past, Nausea, vomiting, stroke or TIA symptoms in the past. On inquiry patient reports that she had a bariatric surgery on Apr 04 2025 and has lost 50lb since then. Patient reports that she still has the tingling sensation in the calf and toe and numbness in the lateral 3 toes. On admission, potassium was 3.4. Head CT showed no acute territorial infarct, intracranial hemorrhage, or mass effect. 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 Echocardiogram showed atrial septal aneurysm noted. Supportive management was started and spinal surgery was consulted. Further evaluation and management could not be completed as the patient requested to leave AMA. Patient was counseled on diagnosis, recommend in treatment and risks of leaving AMA on several occasions. Alternatives to living were offered, including continued inpatient management. Patient verbalized the understanding of risks, benefits and alternatives on several occasions. Patient signed AMA form and was discharged against medical advice. Conditions treated during the stay: Lumbar radiculopathy Mononeuropathy of right lower leg Rule out compressive mass/cyst Rule out autoimmune conditions Severe Lumbar spinal stenosis Perineural sleeve cyst Degenerative disc disease TIA, ruled out Stroke, ruled out Hypertension Anxiety disorder Vitiligo Hypokalemia DVT ruled out Operations or Procedures PROCEDURE: MRI LUMBAR SPINE WO CONTRAST Indication: radiculopathy COMPARISON: None TECHNIQUE: Multiplanar multisequence images of the the lumbar spine are obtained. FINDINGS: For the purpose of this examination, there are 5 lumbar vertebral body types counting from the lumbosacral junction. The lumbar vertebral body heights are maintained. Moderate multilevel disc space narrowing and desiccation. 3 mm anterolisthesis L5 on S1. Probable L5 pars defects. Conus terminates at the level of the T12 vertebral body level. T12-L1: No spinal canal, neural foraminal stenosis. L1-2: No spinal canal, neural foraminal stenosis. Mild facet and flavum hypertrophy. L2-3: 3 mm disc protrusion. [id number]-dy-cemjokvs facet and flavum hypertrophy. No spinal canal stenosis. Mild left neural foraminal stenosis. L3-4: 3 mm disc protrusion. Nikl-st-akepvian facet and flavum hypertrophy. No spinal canal stenosis. Mild bilateral neural foraminal stenosis. L4-5: 3 mm disc protrusion. Moderate facet and flavum hypertrophy . No spinal canal stenosis. Mild bilateral neural foraminal stenosis. L5-S1: 3 mm anterolisthesis L5 on S1. No spinal canal stenosis. Severe bilateral neural foraminal stenosis. 7 mm perineural sleeve cysts at S2, incompletely characterized. IMPRESSION: Moderate lumbar degenerative disc disease. L5 pars defects resulting in 3 mm anterolisthesis L5 on S1. Severe bilateral neural foraminal stenosis L5-S1. Mild neural foraminal stenosis at the remaining levels as described. No high-grade spinal canal stenosis. 7 mm perineural sleeve cysts at S2 MRI BRAIN HEAD WO CONTRAST INDICATION: TIA EXAM DATE: 09/17/2025 10:48 AM COMPARISON: CT HEAD WITHOUT CONTRAST on DOS: 09/16/25 PROCEDURE: Using a 1.5 Jessica scanner, multisequence multiplanar imaging of the brain was obtained. FINDINGS: The brainshows normal morphology and signal characteristics. No abnormal T2 hyperintensity, diffusion restriction, or susceptibility hypointensity is present. The ventricles are normal in size. The midline structures are intact. The major intracranial flow voids are present. The aerated spaces are normal. The orbital contents and extracranial soft tissues appear normal. IMPRESSION: Unremarkable MRI findings of the brain. EXAM: CT LS SPINE WO CONTRAST INDICATION: rule out lumbar radiculopathy TECHNIQUE: Axial images of the lumbar spine have been obtained along with coronal and sagittal reformatted images. CT scans at this facility use dose modulation, iterative reconstruction, and/or weight based dosing when appropriate to reduce radiation dose to as low as reasonably achievable. COMPARISON: None Dose: CTDIvol: 35.75 mGy, DLP: 1187.45 mGy.cm FINDINGS: There is no acute displaced fracture. There is grade 1 anterolisthesis of L5 on S1 on the basis of bilateral pars defects. There is loss of intervertebral disc height most pronounced at L5-S1. The soft tissues are unremarkable. LEVEL BY LEVEL DISCUSSION BELOW: T12-L1: Unremarkable. L1-L2: Unremarkable. L2-L3: A disc protrusion effaces the thecal sac. There is facet arthropathy. L3-L4: A disc protrusion effaces the thecal sac. There is facet arthropathy. L4-L5: There is facet arthropathy contributing to mild left neural foraminal stenosis. L5-S1: There is grade 1 anterolisthesis of L5 on S1 associated with unroofing of the disc. There is facet arthropathy. There is severe bilateral neural foraminal stenosis. IMPRESSION: 1. No acute displaced fracture. 2. Degenerative changes of the lumbar spine as detailed with bilateral neural foraminal stenosis at L5-S1. This may be further evaluated with MRI as clinically indicated. Right lower extremity venous duplex Clinical History: right leg sensory loss, rule out mass, cyst Comparison: None Technique: Duplex Doppler evaluation of the deep venous system of the right lower extremity from the common femoral vein to the popliteal vein including color Doppler and spectral/pulsed waveform analysis was performed. Findings: The common femoral vein demonstrates appropriate compressibility and waveform variability. There is compressibility/patency of the great saphenous vein at the proximal thigh. The femoral vein demonstrates appropriate compressibility and waveform variability. The deep femoral vein demonstrates appropriate compressibility and waveform variability. The popliteal vein demonstrates appropriate compressibility and waveform variability. There is normal compressibility at the tibioperoneal trunk. Impression: 1. No right femoropopliteal venous thrombosis. 2. Contralateral common femoral vein is patent. EXAM: CT HEAD WITHOUT CONTRAST INDICATION: right sided leg weakness x 4 hours TECHNIQUE: CT of the head without intravenous contrast. Radiation Dose : 1. Head: CT Dose: CTDI volume is for 59.39 mGy. Dose-length product is 1070.70 mGy*cm The dose indicators for CT are the volume Computed Tomography (CT) Dose Index (CTDIvol) and the Dose Length Product (DLP), and are measured in units of mGy and mGy-cm, respectively. These indicators are not patient dose, but values generated from the CT scanner acquisition factors. The report includes radiation exposure data for exposures received during this examination. COMPARISON: None FINDINGS: Motion artifact degrades fine detail. The cerebral parenchyma appears to be normal configuration and attenuation. The ventricles, cisterns, and sulci appear age-appropriate. There is no evidence for acute territorial infarct, hemorrhage, or mass effect. The orbits are normal. The visualized paranasal sinuses and mastoid air cells are clear. The soft tissues and osseous structures appear within normal limits. IMPRESSION: 1. No acute territorial infarct, intracranial hemorrhage, or mass effect. 2. If clinical symptoms persist, MRI is suggested in further evaluation. Radiation optimization: All CT scans at this facility use at least one of these dose optimization techniques: automated exposure control mA and/or kV adjustment per patient size (includes targeted exams where dose is matched to clinical indication) or iterative reconstruction. Condition at Discharge: Undetermined Final Diagnosis/Problems List Lumbar radiculopathy Mononeuropathy of right lower leg Rule out compressive mass/cyst Rule out autoimmune conditions Severe Lumbar spinal stenosis Perineural sleeve cyst Degenerative disc disease TIA, ruled out Stroke, ruled out Hypertension Anxiety disorder Vitiligo Hypokalemia DVT ruled out Discharge Disposition: AMA Discharge Instruct/Medications Scheduled Escitalopram Oxalate (Lexapro), 1 TAB PO DAILY, (Reported) Lisinopril & Hydrochlorothiazi (Lisinopril/Hydrochlorothi), 1 TAB PO DAILY, (Reported) Discharge Statement: "Patient was advised to return to the ER or call 911 if any headaches, dizziness, shortness of breath, chest pain, abdominal pain, bleeding, fevers, or worsening of medical condition. Patient was counseled about treatment plan, medications, possible side effects, patientverbalized understanding. All questions were answered to the best of my ability. This discharge took greater then 30 minutes in planning, reviewing documentation, counseling the patient, and discussing with other team members." ASSESSMENT ASSESSMENT Assessment Date of Service: Sep 18, 2025 Billing Provider: ROGER NG MD Common Visit Codes: 33050-KDZ/OBS DISCH DAY >30min TASHIA CLARK RESIDENT Sep 18, 2025 14:47
== END 2025-09-17 20:09 | disposition left against medical advice (07) | DRG 48 ==
LOC: ER 18:09 → OVERFLOW 22:38 → EAST 09-17 14:34
PROVIDERS: ADMIT Internal Medicine Geriatric Medicine; ATTEND Internal Medicine Geriatric Medicine
DX: G57.81 Other specified mononeuropathies of right lower limb (principal); E87.6 Hypokalemia; M51.16 Intervertebral disc disorders with radiculopathy, lumbar region; M48.061 Spinal stenosis, lumbar region without neurogenic claudication; M48.07 Spinal stenosis, lumbosacral region; M43.17 Spondylolisthesis, lumbosacral region; F41.9 Anxiety disorder, unspecified; L80 Vitiligo; I10 Essential (primary) hypertension; Z53.29 Procedure and treatment not carried out because of patient's decision for other reasons; Z90.49 Acquired absence of other specified parts of digestive tract; Z98.84 Bariatric surgery status
CPT/HCPCS: 36415; 70450; 70551; 72131; 72148; 80048; 80053; 80076; 82306; 82607; 82746; 83036; 83735; 85025; 85652; 86038; 86141; 93306; 93971; G0378